=== PATIENT | male | born 2000 | race African-American/Black ===

== ENCOUNTER 2020-08-22 18:03 | Emergency (ER) | payer OTHER ==
[~2020-08-22] VITALS: Ht 170.2 cm; Wt 75.5 kg
[2020-08-22] MEDS ORDERED: NICO1KIT TOP (18:12)
[2020-08-22 21:02] VITALS: BP 129/66
== END 2020-08-22 21:03 | disposition home or self-care (01) ==
LOC: M ED 18:03
DX: F32.9 Major depressive disorder, single episode, unspecified (principal)

== ENCOUNTER 2020-10-17 07:24 | Emergency (ER) | payer OTHER ==
[~2020-10-17] VITALS: Ht 170.2 cm; Wt 79.4 kg
[~2020-10-17 07:24] MED LIST: NICO1KIT TOP
[2020-10-17] MEDS ORDERED: HYDR50TA70 PO (07:34)
[2020-10-17 08:38] LABS: HEMATOCRIT 42.7 % (42.0-52.0); HEMOGLOBIN 14.5 g/dl (13.5-17.5); MEAN CORPUSCULAR HEMOGLOBIN 27.5 pg (27.0-33.0); PLATELET COUNT, AUTOMATED 192 10^3/uL (150-450); RED BLOOD COUNT 5.27 10^6/uL (4.30-6.10); WHITE BLOOD COUNT 4.9 10^3/uL (4.0-10.0)
[2020-10-17 09:01] LABS: AMPHETAMINES LEVEL URINE NEGATIVE (NEGATIVE); BARBITURATES URINE NEGATIVE (NEGATIVE); BENZODIAZEPINES URINE NEGATIVE (NEGATIVE); CANNABINOIDS URINE NEGATIVE (NEGATIVE); COCAINE METABOLITE URINE NEGATIVE (NEGATIVE); METHADONE URINE NEGATIVE (NEGATIVE); OPIATES URINE POSITIVE (NEGATIVE); PHENCYCLIDINE URINE NEGATIVE (NEGATIVE)
[2020-10-17 09:10] LABS: ACETAMINOPHEN LEVEL < 2.0 UG/ML (10.0-30.0); ALBUMIN 3.8 GM/DL (3.2-5.2); ALT/SGPT 31 U/L (12-78); BILIRUBIN,DIRECT 0.2 MG/DL (0.0-0.2); BILIRUBIN,TOTAL 0.6 MG/DL (0.2-1.0); BLOOD UREA NITROGEN 20 MG/DL (7-18); CALCIUM LEVEL 8.6 MG/DL (8.5-10.1); CARBON DIOXIDE LEVEL 27 MEQ/L (21-32); CHLORIDE LEVEL 108 MEQ/L (98-107); CREATININE FOR GFR 0.92 MG/DL (0.70-1.30); ETHYL ALCOHOL (ETHANOL) < 0.003 % (0.000-0.010); GLOMERULAR FILTRATION RATE > 60.0 (>60); GLUCOSE, FASTING 87 MG/DL (70-100); POTASSIUM SERUM 4.1 MEQ/L (3.5-5.1); SALICYLATE LEVEL < 1.7 MG/DL (5.0-30.0); SODIUM LEVEL 140 MEQ/L (136-145); TOTAL PROTEIN 7.1 GM/DL (6.4-8.2)
[2020-10-17] MEDS ORDERED: LEVO250T12 PO (20:26)
[2020-10-17] MEDS ORDERED: HOME MED LIST COMPLETE! XX SCH (20:30)
[2020-10-18 01:08] LABS: RSV AMPLIFICATION NEGATIVE (NEGATIVE)
[2020-10-18 06:36] VITALS: BP 118/72
--- NOTE | 2020-10-18 07:16 | ECGEPIP ---
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
== END 2020-10-18 06:41 ==
LOC: M ED 07:24
DX: R45.851 Suicidal ideations (principal); R00.1 Bradycardia, unspecified; I45.19 Other right bundle-branch block; F32.9 Major depressive disorder, single episode, unspecified; F41.9 Anxiety disorder, unspecified